=== PATIENT | male | born 1945 | race Caucasian/White ===

== ENCOUNTER 2025-02-10 11:42 | Emergency (ER) | payer MEDICARE, BC | END 2025-02-10 13:25 | disposition home or self-care (01) | LOC: FB.ED 11:42 | DX: S30.851A Superficial foreign body of abdominal wall, initial encounter (principal); Z88.6 Allergy status to analgesic agent; Z88.1 Allergy status to other antibiotic agents; Z88.2 Allergy status to sulfonamides; Z91.013 Allergy to seafood; Z79.4 Long term (current) use of insulin; Z79.890 Hormone replacement therapy; Z79.899 Other long term (current) drug therapy; W45.8XXA Other foreign body or object entering through skin, initial encounter | CPT/HCPCS: 74019; 99283 ==